=== PATIENT | female | born 1945 | race Caucasian/White ===

== ENCOUNTER → 2017-11-07 | Outpatient (CLI) | payer MEDICARE, BC | END | disposition home or self-care (01) | LOC: CVU 14:54 | PROVIDERS: ATTEND Internal Medicine Cardiovascular Disease | DX: I65.23 Occlusion and stenosis of bilateral carotid arteries (principal); E78.5 Hyperlipidemia, unspecified; R73.01 Impaired fasting glucose; I67.9 Cerebrovascular disease, unspecified | CPT/HCPCS: 93880 ==

== ENCOUNTER 2018-03-15 11:26 | Day surgery (SDC) | payer MEDICARE, BC ==
[~2018-03-15] VITALS: Ht 157.5 cm; Wt 60.6 kg
[2018-03-15] MEDS ORDERED: VERA360C2 PO (12:05)
[2018-03-15] MEDS ORDERED: LEVO50TA PO (12:05)
[2018-03-15] MEDS ORDERED: DIAZ2TAB PO (12:05)
[2018-03-15 12:07] VITALS: BP 123/78
[2018-03-15] MEDS ORDERED: LACTATED RINGERS 1,000 ML IV SCH (12:23)
[2018-03-15] MEDS ORDERED: NEOSPORIN OINT, 15GM ONE (12:24)
[2018-03-15] MEDS ORDERED: ROPIvacaine/PF 0.5%, 30 ML ONE (12:24)
[2018-03-15] MEDS ORDERED: ONDANSETRON ODT 8 MG PO ONE (12:30)
[2018-03-15] MEDS ORDERED: ACETAMINOPHEN 500 MG TABLET PO ONE (12:30)
[2018-03-15] MEDS ORDERED: FENTANYL PF 100 MCG/2ML ONE ×2 (12:32→14:23)
[2018-03-15] MEDS ORDERED: MIDAZOLAM 1 MG/ML, 2ML ONE (12:32)
[2018-03-15] MEDS ORDERED: PROPOFOL 10 MG/ML, 20ML ONE (12:33)
[2018-03-15] MEDS ORDERED: ROPIvacaine/PF 0.5%, 20 ML ONE (13:01)
[2018-03-15] MEDS ORDERED: ROPivacaine/PF 0.2%, 10 ML ONE (13:02)
[2018-03-15] MEDS ORDERED: ROPIvacaine/PF 0.2%, 20 ML ONE (13:05)
[2018-03-15] MEDS ORDERED: CEFAZOLIN 1,000 MG ONE (13:22)
[2018-03-15] MEDS ORDERED: ONDANSETRON 2MG/ML, 2ML ONE (13:22)
[2018-03-15] MEDS ORDERED: DEXAMETHASONE 4 MG/ML, 1ML ONE (13:22)
[2018-03-15] MEDS ORDERED: methylPREDNISolone*ACETATE* 80 MG/ML ONE (13:53)
[2018-03-15] MEDS ORDERED: NALOXONE 0.4 MG/ML, 1ML ONE (13:56)
[2018-03-15] MEDS ORDERED: MIDAZOLAM 1 MG/ML, 2ML IV PRN (14:00)
[2018-03-15] MEDS ORDERED: PROMETHAZINE 25 MG/ML, 1ML IV PRN (14:00)
[2018-03-15] MEDS ORDERED: HYDROmorphone 1 MG/ML, 1ML IV PRN (14:00)
[2018-03-15] MEDS ORDERED: LORazepam 2 MG/ML, 1ML IVPush PRN (14:00)
[2018-03-15] MEDS ORDERED: hydrALAzine 20 MG/ML, 1ML IV PRN (14:00)
[2018-03-15] MEDS ORDERED: ONDANSETRON 2MG/ML, 2ML IV PRN (14:00)
[2018-03-15] MEDS ORDERED: OXYcodone 5 MG/5 ML ORAL.SOL UDC PO PRN (14:00)
[2018-03-15] MEDS ORDERED: MEPERIDINE/PF 25MG/0.5ML IVPush PRN (14:00)
[2018-03-15] MEDS ORDERED: ONDANSETRON ODT 8 MG PO PRN (14:00)
[2018-03-15] MEDS ORDERED: EPHEDRINE 50 MG/ML, 1ML IVPush PRN (14:00)
[2018-03-15] MEDS ORDERED: HALOPERIDOL 5 MG/ML IV PRN (14:00)
[2018-03-15] MEDS ORDERED: PROMETHAZINE 12.5 MG SUPP PR PRN (14:00)
[2018-03-15] MEDS ORDERED: ALBUTEROL SULFATE 2.5 MG/3 ML NPPB PRN (14:00)
[2018-03-15] MEDS ORDERED: FENTANYL PF 100 MCG/2ML IV PRN (14:00)
[2018-03-15] MEDS ORDERED: LABETALOL 5MG/ML, 20ML IV PRN (14:00)
[2018-03-15] MEDS ORDERED: DIAZEPAM 5 MG/ML, 2ML IVPush PRN (14:00)
[2018-03-15] MEDS ORDERED: OXYcodone 5 MG/5 ML ORAL.SOL UDC ONE (14:21)
[2018-03-15] MEDS ORDERED: HYDROmorphone 2 MG/ML, 1ML ONE (14:23)
[2018-03-15] MEDS ORDERED: MEPERIDINE/PF 50 MG/ML ONE (14:25)
== END 2018-03-15 17:15 | disposition home or self-care (01) ==
LOC: OUT 11:26
PROVIDERS: ATTEND Orthopaedic Surgery
DX: S83.282A Other tear of lateral meniscus, current injury, left knee, initial encounter (principal); S83.242A Other tear of medial meniscus, current injury, left knee, initial encounter; M25.562 Pain in left knee; M17.12 Unilateral primary osteoarthritis, left knee; E11.9 Type 2 diabetes mellitus without complications; E03.9 Hypothyroidism, unspecified; X58.XXXA Exposure to other specified factors, initial encounter; Y93.89 Activity, other specified; Y92.89 Other specified places as the place of occurrence of the external cause; Y99.8 Other external cause status; Z88.0 Allergy status to penicillin; Z88.8 Allergy status to other drugs, medicaments and biological substances; Z88.1 Allergy status to other antibiotic agents
CPT/HCPCS: 29880; 64445; 93005; J0690; J1040; J1100; J1170; J2175; J2250; J2310; J2405; J2704; J2795; J3010; J7120; Q0162

== ENCOUNTER 2018-10-13 10:10 | Outpatient (CLI) | payer MEDICARE, BC ==
[~2018-10-13 10:10] MED LIST: DIAZ2TAB PO; LEVO50TA PO; VERA360C2 PO
== END 2018-10-13 23:59 | disposition home or self-care (01) ==
LOC: CVU 10:10
PROVIDERS: ATTEND Internal Medicine Cardiovascular Disease
DX: I65.23 Occlusion and stenosis of bilateral carotid arteries (principal); I67.9 Cerebrovascular disease, unspecified; E78.2 Mixed hyperlipidemia
CPT/HCPCS: 93880